=== PATIENT | male | born 1995 | race American Indian/Alaskan Native ===

== ENCOUNTER 2017-03-28 05:12 | Emergency (ER) | payer SELFPAY ==
[2017-03-28 05:20] VITALS: BP 156/107
[2017-03-28] MEDS ORDERED: TYLENOL ONE (05:20)
[2017-03-28] MEDS ORDERED: TYLENOL PO ONE (05:20)
== END 2017-03-28 05:21 | disposition left against medical advice (07) ==
LOC: ED 05:12
DX: K08.89 Other specified disorders of teeth and supporting structures (principal); F17.200 Nicotine dependence, unspecified, uncomplicated; Z53.21 Procedure and treatment not carried out due to patient leaving prior to being seen by health care provider